=== PATIENT | female | born 1985 | race Caucasian/White ===

== ENCOUNTER 2022-11-25 00:13 | Inpatient (IN) | payer MEDICAID, SELFPAY ==
[2022-11-24 23:34] VITALS: PULSE 112; O2SAT 77
[2022-11-24 23:36] VITALS: PULSE 125; O2SAT 97
[2022-11-24 23:41] VITALS: PULSE 117; O2SAT 97
[2022-11-25] VITALS (120 sets, daily range): BP systolic 107–155; BP diastolic 31–81; PULSE 96–129; RESP 15–18; TEMP 35.8–37.2; O2SAT 90–100; BMI 45.3
[2022-11-25 00:10] LABS: Basophils % 0.2 %; Eosinophils % 0.1 %; Hematocrit 37.6 % (37.0-47.0); Hemoglobin 12.1 g/dL (11.5-15.3); Lymphocytes # 1.4 10^3/uL (0.8-4.8); Lymphocytes % 9.5 %; Mean Corpuscular HGB Conc 32.2 g/dL (30.0-36.0); Mean Corpuscular Hemoglobin 28.3 pg (28.0-34.0); Mean Corpuscular Volume 88.1 fl (81-99); Mean Platelet Volume 9.6 fL (7.4-10.4); Monocytes # 0.7 10^3/uL (0.2-0.9); Monocytes % 4.7 %; Neutrophils # 12.02 10^3/uL (1.8-7.7); Nucleated Red Blood Cells % 0 %; Platelet Count 183 10^3/cmm (130-400); Red Blood Count 4.27 10^6/uL (4.1-5.3); Red Cell Distribution Width 16.5 % (12.1-15.1); White Blood Count 14.2 10^3/uL (4.0-10.0)
[2022-11-25] MEDS: lactated ringers 1,000 ML 999 ML IV (00:30)
[2022-11-25] MEDS: famotidine 20 mg/2 mL INJ IVP (00:49)
[2022-11-25] MEDS: citric acid-sodium citrate 30 mL UDC PO (00:49)
[2022-11-25] MEDS: metoclopramide 5 mg/mL SDV 2 mL 10 MG IVP (00:49)
[2022-11-25] MEDS: ceFAZolin 2,000 MG in sodium chloride 0.9% (plus) 50 ML 100 MG IV (00:50)
--- NOTE | 2022-11-25 01:20 | SUR.OPER ---
0059 heart tones 140's
--- NOTE | 2022-11-25 01:40 | ANES.PREANE2 ---
Pre-Anesthetic Assessment Height/Weight: Height 1.7 m Pulse BP Pulse Ox 100 141/66 97 11/25/22 00:51 11/25/22 00:51 11/24/22 23:41 Preop Diagnosis: IUP Operation Date: 11/25/22 01:00 Proposed Procedures p Section Repeat(Not Applicable) - Declan Warren MD Familial anesthetic complications: none Last intake: meal early afternoon per patient. Social No alcohol and No tobacco Exam alert and oriented x 3 Airway Submandibular: within normal limits Cervical ROM: within normal limits Mallampati: Class I Dentition: full Pulmonary None reported CV/HEM None reported None reported Hepatic None reported GI None reported Metabolic None reported Musc/skel None reported Neuropsych None reported Patient restless refusing care, very anxious. Anesthetic Plan ASA status: 3E Anesthesia: General and Regional (specify below) (SAB) Other Pertinent Information Patient presented to OB in active labor , Gestation 42 weeks and 3 days. Patient reports she attempted a home delivery, membranes intact at this time. [id number] CLEARING HOUSE CLERK called for stat c/s. CLEARING HOUSE CLERK arrived to OB unit at 0000. GA requested given patient history and presentation. CLEARING HOUSE CLERK preparing for GA when ordered halt on C/S he was able to check patient and she is complete baby looks stable at this time potential for vaginal delivery. CLEARING HOUSE CLERK entered room to discuss options and assess patient she was restless and anxious begging us to do something physician requested a spinal anesthetic to calm the patient and try to avoid C/S if possible. Patient denied medical history gave verbal consent. She was prepped and draped sterile technique used 0.75% bupivicaine 0.25ml with 25 mcg Fentanyl was given x 2 attempts + CSF - Heme. Membranes were ruptured presentation was favorable. Ultimately the decision for a GA was made d/t patients inability to cooperate and her anxiety levels. When given the option to try to push the baby out vs. C/S she elected for a C/S with GA. Patient reported previous C/S with large babies (11lbs) given that she is 42 weeks 3 days without care and the patient is uncooperative and anxious the safest choice was to proceed with C/S.FHT stable. Medications/Allergies Home Medications Medication Instructions Recorded Confirmed Last Taken Type ondansetron 8 mg disintegrating 8 mg PO Q8H PRN nausea and 03/29/22 03/29/22 Unknown Rx tablet vomiting #30 tabs Allergies Allergy/AdvReac Type Severity Reaction Status Date / Time No Known Allergies Allergy Unverified 03/29/22 15:44 Data Anesthesia 11/24/22 23:56 Short CBC 11/24/22 Range/Units 23:56 WBC 14.2 H (4.0-10.0) 10^3/uL Hgb 12.1 (11.5-15.3) g/dL Hct 37.6 (37.0-47.0) % MCV 88.1 (81-99) fl Plt Count 183 (130-400) 10^3/cmm Neut % (Auto) 85.0 % Neut # (Auto) 12.02 H (1.8-7.7) 10^3/uL Blood Bank 11/24/22 23:56 Blood Type A Positive Rho(D) Type Positive Antibody Screen Negative Cardiac Studies: No Data to Display
--- NOTE | 2022-11-25 02:09 | PM.OBGYHP ---
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 She is unsure of her due date and states it was the middle of October . On based information that we have based on her last menstrual period her estimated gestational age was approximately 42 weeks 3 days. She states that she had initial care with Dr. Leach, however she opted to do home without any assistance and sought no further care. She has had prior with her last delivery approximately 5 years ago and 4 vaginal deliveries before that. Upon initial evaluation the patient was in significant pain having obvious contractions. Difficulty to assess patient due to patient being on cooperative with nursing staff. Eventually the patient was able to be checked and she was 8 to 9 cm with a bulging bag. Initially the patient was believed to be able to deliver vaginally in the amniotic sac was ruptured. However, the patient had significant pain without further descent. The patient did complete dilation and did not feel that she could push or lay on her back. Opted to proceed with repeat lower transverse . Review of Systems General: Reports: 10 or more systems reviewed and unremarkable except in HPI and below Medications/Allergies Home Medications Medication Instructions Recorded Confirmed Last Taken Type ondansetron 8 mg disintegrating 8 mg PO Q8H PRN nausea and 03/29/22 03/29/22 Unknown Rx tablet vomiting #30 tabs Allergies Allergy/AdvReac Type Severity Reaction Status Date / Time No Known Allergies Allergy Unverified 03/29/22 15:44 History History History 8 Term Miscarriages/Ectopic Living Children 5 Vitals/I&O/Wt Last Vital Signs Pulse 100 11/25/22 00:51 BP 141/66 11/25/22 00:51 Pulse Ox 97 11/24/22 23:41 Physical Exam Const: COMMON NORMALS: alert; apparent distress Resp: COMMON NORMALS: normal respiratory effort and No retractions Cardio: COMMON NORMALS: no JVD, regular rate and regular rhythm GI: OTHER: Gravid : COMMON NORMALS: Yes normal external appearance Extremity: COMMON NORMALS: no clubbing, cyanosis or edema Neuro: COMMON NORMALS: moves all extremities Psych: COMMON NORMALS: mental status grossly normal; negative for cooperative Skin: GENERAL SKIN EXAM: no rashes or lesions noted Urinary Catheter Management: Jones Latex: Cath Placed During This Visit: yes Urinary Catheter Date of Insertion: 11/25/22 Urinary Catheter Time of Insertion: 00:47 Data 11/24/22 23:56 A&P Assessment and plan (1) with fetus of unknown gestational age: Plan to proceed with repeat low-transverse as the the fetus is fairly large based on palpation. Discussed risks and benefits of including bleeding, infection, damage to other structures, and . Informed consent was obtained. (2) Insufficient care: Attestations Medical Necessity Statement*: Anticipate greater than 2 midnight stay Coding Level of Care Code Acute Code for Chg Fwd Diagnoses with fetus of unknown gestational age Z34.90 Insufficient care O09.30
[2022-11-25 02:17] LABS: Amphetamines Screen Urine Negative (Negative); Barbiturates Screen Urine Negative (Negative); Benzodiazepines Screen Urine Negative (Negative); Cocaine Screen Urine Negative (Negative); Opiate Screen Urine Negative (Negative); PCP Screen Urine Negative (Negative); THC Screen Urine Negative (Negative)
--- NOTE | 2022-11-25 02:19 | P.OP_ITS ---
Operative Report Date of procedure: November 25, 2022 Pre-op diagnosis: Preop Diagnosis IUP Post-op diagnosis: same Post-op findings: Viable female Procedure done: Repeat lower transverse Surgeon: Dr. Declan Warren General Operations Agent: Dr. Nathaly Baker Estimated blood loss (mL): 700 Complications: None Condition: stable Disposition: PACU Brief History: This is a 37-year-old G8, P6 that presented with contractions, vaginal bleeding, and of unknown gestational age. She also has a history of previous C- section. Procedure: Patient was taken to the operating room where general anesthesia was given after she was prepped and draped in the normal sterile fashion in a dorsal supine position with a leftward tilt. Skin incision was made with scalpel and carried out to the underlying layer of fascia which was incised in the midline. Fascial incision was then extended laterally with Gutierrez scissors bilaterally. The superior aspect of the fascial incision was grasped with Kyle clamps elevated and dissected off the rectus muscles with Gutierrez's. The inferior aspect of the fascial incision was grasped with Milton's and in likewise manner was elevated and dissected off with Gutierrez's. Peritoneum was then entered digitally and extended with good visualization of the bladder. Silvia O retractor was inserted. uterine incision was then created in a transverse fashion in the lower uterine segment with scalpel and extended digitally. Clear fluid noted. 's head was delivered atraumatically nose and mouth suctioned with bulb, cord clamped and cut and handed off to waiting nursing staff. The placenta was then expressed and uterus exteriorized from the abdomen. And cleared of all clots and debris. Uterine incision was then repaired in a running locked fashion with 0 Vicryl. A second suture of the same was then used to imbricate the incision. Excellent hemostasis was noted. Uterus was then returned to the abdomen, gutters were cleared of all clots and debris and wound was irrigated. Peritoneum was then closed in a running fashion with 3-0 Vicryl. Fascia was then closed with 0 Vicryl in a running fashion. Subcutaneous tissue was closed with 3-0 Vicryl and skin was closed with 4-0 Monocryl on a Mahin needle. The incision was reinforced with Steri-Strips and pressure bandage was placed over the wound. Sponge, laps, and needle count was correct x2. 2 g Ancef was given prior to the procedure. Patient was taken recovery in stable condition.
[2022-11-25] MEDS: HYDROcodone-acetaminophen 5-325 mg Tablet PO ×4 (04:35→18:44)
[2022-11-25] MEDS: dextrose 5%-lactated ringers 1,000 ML 125 ML IV ×2 (04:36→14:37)
--- NOTE | 2022-11-25 04:36 | PC.NURSE ---
Patient reported one time allergy to tylenol when she was younger that gave her hives. She has had hydrocodone with her previous and had no reaction. She is requesting pain medication at this time and would like hydrocodone as it works well.
--- NOTE | 2022-11-25 06:25 | PC.NURSE ---
Patient was helped up to the chair at this time. She had a moderate amount of blood loss at this time no clots. I changed her linens and then helped her back into bed. She has had scant to small bleeding all night. She denies pain at this time.
--- NOTE | 2022-11-25 06:34 | PC.NURSE ---
call made to hotline regarding no care. Drug screen was negative. Patient is bonding well with baby. This nurse has no other concerns at this time.
--- NOTE | 2022-11-25 07:58 | ANE.PACU2 ---
Inpatient post-anesthesia follow up: Airway intact: Yes Vital signs: Temperature 96.5 F Pulse Rate 109 Respiratory Rate 16 Blood Pressure 114/56 Pulse Oximetry 99 Oxygen Delivery Me thod Room Air Oxygen Flow Rate Fraction of Inspir ed Oxygen Hydration adequate: Yes Nausea and vomiting: No Pain level: 3 Mental status: Baseline
[2022-11-25] MEDS: ketorolac 30 mg/mL INJ IVP ×2 (08:31→14:15)
[2022-11-25] MEDS: prenatal vitamin Capsule 1 CAP PO (09:47)
[2022-11-25 18:13] LABS: Hematocrit 28.5 % (37.0-47.0); Hemoglobin 8.9 g/dL (11.5-15.3); Mean Corpuscular HGB Conc 31.2 g/dL (30.0-36.0); Mean Corpuscular Hemoglobin 28.4 pg (28.0-34.0); Mean Corpuscular Volume 91.1 fl (81-99); Mean Platelet Volume 9.4 fL (7.4-10.4); Platelet Count 171 10^3/cmm (130-400); Red Blood Count 3.13 10^6/uL (4.1-5.3); Red Cell Distribution Width 17.1 % (12.1-15.1); White Blood Count 10.8 10^3/uL (4.0-10.0)
[2022-11-25] MEDS: docusate sodium 100 mg Capsule PO (18:44)
[2022-11-25] MEDS: ibuprofen 800 mg tablet PO (20:05)
[2022-11-25] MEDS: lanolin oint 7 gm 1 APPLIC TOPICAL (20:06)
[2022-11-25] MEDS: simethicone 80 mg Chew PO (20:06)
[2022-11-26] MEDS: HYDROcodone-acetaminophen 5-325 mg Tablet PO ×4 (01:13→20:25)
[2022-11-26 05:35] VITALS: BP 98/55; PULSE 85; RESP 16; TEMP 36.8; O2SAT 98
--- NOTE | 2022-11-26 07:34 | PM.OBGYPN ---
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 She is postop day 1. Is doing fairly well. Patient had some initial dizziness but this is improved. Overall she has no new concerns today. Vital signs have been stable Labor: Station: -1 Amniotic Membrane Status: Intact Monitor Mode: Palpation Contraction Pattern: Regular Post /CS: Patient comments OB post-: no complaints, pain well controlled, incisional pain and tolerating diet baby status: doing well feeding status: exclusively breast feeding Vitals/I&O/Wt Last Vital Signs Temp 98.3 F 11/26/22 05:35 Pulse 85 11/26/22 05:35 Resp 16 11/26/22 05:35 BP 98/55 11/26/22 05:35 Pulse Ox 98 11/26/22 05:35 O2 Del Method Room Air 11/26/22 05:35 Weight last 48 hrs Weight 131.224 kg Physical Exam Const: COMMON NORMALS: alert; apparent distress Neck/C-Spine: COMMON NORMALS: no JVD Resp: COMMON NORMALS: normal respiratory effort and No retractions Cardio: COMMON NORMALS: no JVD, regular rate and regular rhythm RATE: regular rate RHYTHM: regular rhythm GI: OTHER: Gravid : COMMON NORMALS: Yes normal external appearance Extremity: COMMON NORMALS: no clubbing, cyanosis or edema Neuro: COMMON NORMALS: moves all extremities SENSORIUM/ORIENTATION: Yes alert Psych: COMMON NORMALS: mental status grossly normal; negative for cooperative Skin: COMMON NORMALS: no rashes or lesions noted (Incision clean dry and intact) GENERAL SKIN EXAM: no rashes or lesions noted (Incision clean dry and intact) Urinary Catheter Management: Jones Latex: Cath Placed During This Visit: yes, but has since been removed by the nurse Reason for Continuing Indwelling Catheter: Decision to DC Catheter Urinary Catheter Date of Insertion: 11/25/22 Urinary Catheter Time of Insertion: 00:47 Date Urinary Catheter Removed: 11/25/22 Time Urinary Catheter Discontinued: 19:45 Data 11/25/22 18:05 A&P Assessment and plan (1) Insufficient care: (2) Status post repeat low transverse section: Continue with routine post care. Up out of bed today, ambulating. Attestations Medical Necessity Statement*: Anticipate discharge tomorrow. Coding Level of Care Code Acute Code for Chg Fwd Diagnoses Insufficient care O09.30 Status post repeat low transverse section Z98.891
[2022-11-26] MEDS: ibuprofen 800 mg tablet PO ×3 (08:49→20:25)
[2022-11-26] MEDS: docusate sodium 100 mg Capsule PO ×2 (08:50→20:25)
[2022-11-26] MEDS: prenatal vitamin Capsule 1 CAP PO (08:50)
[2022-11-26 09:30] VITALS: BP 105/56; PULSE 108; RESP 16; O2SAT 97
[2022-11-26 16:40] VITALS: BP 111/57; PULSE 104; RESP 16; O2SAT 97
[2022-11-26 20:24] VITALS: BP 147/70; PULSE 102; O2SAT 97
[2022-11-27 06:05] VITALS: BP 100/56; PULSE 90; RESP 18; TEMP 36.9; O2SAT 96
--- NOTE | 2022-11-27 06:52 | P.DS_ITS ---
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 Hospital Course Hospital Course This is a 37-year-old that presented with contractions. Patient was initially not compliant with evaluation. Patient evaluation did show a elevated cervix of 8 to 9 cm with head down . Patient has had 4 previous vaginal births but her last was due to macrosomia. Her last child weighed 12 pounds at . The patient was susana every 2 to 3 minutes did not feel that she was capable of delivering this baby vaginally and for the concerns of Dr. Mancia decided to proceed with repeat low-transverse C- section. She underwent repeat low-transverse without complication. The patient initially had some dizziness after delivery but this did resolve. Otherwise, her post care has been unremarkable. Her pain is well controlled. Bleeding is appropriate. Information Peripartum Data: Delivery Method: complications: none Physical Exam Const: COMMON NORMALS: alert; apparent distress Neck/C-Spine: COMMON NORMALS: no JVD Resp: COMMON NORMALS: normal respiratory effort and No retractions Cardio: COMMON NORMALS: no JVD, regular rate and regular rhythm RATE: regular rate RHYTHM: regular rhythm GI: OTHER: Gravid : COMMON NORMALS: Yes normal external appearance Extremity: COMMON NORMALS: no clubbing, cyanosis or edema Neuro: COMMON NORMALS: moves all extremities SENSORIUM/ORIENTATION: Yes alert Psych: COMMON NORMALS: mental status grossly normal; negative for cooperative Skin: COMMON NORMALS: no rashes or lesions noted (Incision clean dry and intact) GENERAL SKIN EXAM: no rashes or lesions noted (Incision clean dry and intact) Urinary Catheter Management: Jones Latex: Cath Placed During This Visit: yes, but has since been removed by the nurse Reason for Continuing Indwelling Catheter: Decision to DC Catheter Urinary Catheter Date of Insertion: 11/25/22 Urinary Catheter Time of Insertion: 00:47 Date Urinary Catheter Removed: 11/25/22 Time Urinary Catheter Discontinued: 19:45 History History History 8 Term Miscarriages/Ectopic Living Children 6 Discharge Data Studies Completed and Pending Laboratory Results WBC 10.8 10^3/uL (4.0-10.0) H 11/25/22 18:05 RBC 3.13 10^6/uL (4.1-5.3) L 11/25/22 18:05 Hgb 8.9 g/dL (11.5-15.3) L 11/25/22 18:05 Hct 28.5 % (37.0-47.0) L 11/25/22 18:05 MCV 91.1 fl (81-99) 11/25/22 18:05 MCH 28.4 pg (28.0-34.0) 11/25/22 18:05 MCHC 31.2 g/dL (30.0-36.0) 11/25/22 18:05 RDW 17.1 % (12.1-15.1) H 11/25/22 18:05 Plt Count 171 10^3/cmm (130-400) 11/25/22 18:05 MPV 9.4 fL (7.4-10.4) 11/25/22 18:05 Neut % (Auto) 85.0 % 11/24/22 23:56 Lymph % (Auto) 9.5 % 11/24/22 23:56 Swift % (Auto) 4.7 % 11/24/22 23:56 Eos % (Auto) 0.1 % 11/24/22 23:56 Baso % (Auto) 0.2 % 11/24/22 23:56 Neut # (Auto) 12.02 10^3/uL (1.8-7.7) H 11/24/22 23:56 Lymph # (Auto) 1.4 10^3/uL (0.8-4.8) 11/24/22 23:56 Swift # (Auto) 0.7 10^3/uL (0.2-0.9) 11/24/22 23:56 Eos # (Auto) 0.0 10^3/uL (0.0-0.8) 11/24/22 23:56 Baso # (Auto) 0.0 10^3/uL (0.0-0.1) 11/24/22 23:56 Nucleated RBC % (auto) 0 % 11/24/22 23:56 Nucleated RBCs # 0.0 /100WBC 11/24/22 23:56 Urine Opiates Screen Negative ng/mL (Negative) 11/25/22 00:25 Ur Barbiturates Screen Negative ng/mL (Negative) 11/25/22 00:25 Ur Phencyclidine Scrn Negative ng/mL (Negative) 11/25/22 00:25 Ur Amphetamines Screen Negative ng/mL (Negative) 11/25/22 00:25 U Benzodiazepines Scrn Negative ng/mL (Negative) 11/25/22 00:25 Urine Cocaine Screen Negative ng/mL (Negative) 11/25/22 00:25 U Marijuana (THC) Screen Negative ng/mL (Negative) 11/25/22 00:25 Blood Type A Positive 11/24/22 23:56 Rho(D) Type Positive 11/24/22 23:56 Antibody Screen Negative 11/24/22 23:56 Vitals Last Vital Signs Temp 98.4 F 11/27/22 06:05 Pulse 90 11/27/22 06:05 Resp 18 11/27/22 06:05 BP 100/56 11/27/22 06:05 Pulse Ox 96 11/27/22 06:05 O2 Del Method Room Air 11/27/22 06:05 Discharge Plan Discharge Patient Disposition: Home Condition: Stable Prescriptions: New hydrocodone-acetaminophen 5-325 mg Tablet 1 - 2 tab PO Q4H PRN (Reason: Moderate To Severe Pain) Qty: 10 0RF Discharge Orders: Discharge Order (Routine); Ordered 11/27/22 Ordered By: Declan Warren Referrals: Declan Warren MD [Physician] - 7-10 days Discharge Diet: Usual diet and Regular Discharge Activity: Limit activity as instructed Patient Instructions: Depression (DC), Bleeding (DC), Opioid Safety (DC), Preeclampsia and Eclampsia After Delivery (GEN), (DC), OB Discharge Report, OB Food/Drug Interaction Guide, Opioid Safety, OB Home Care, OB Proud Parent Packet, Abnormal Bleeding Discharge Attestations 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
[2022-11-27] MEDS: HYDROcodone-acetaminophen 5-325 mg Tablet PO (07:14)
[2022-11-27] MEDS: docusate sodium 100 mg Capsule PO (09:29)
[2022-11-27] MEDS: ibuprofen 800 mg tablet PO ×2 (09:29→15:25)
[2022-11-27] MEDS: prenatal vitamin Capsule 1 CAP PO (09:29)
[2022-11-27 10:30] VITALS: BP 123/61; PULSE 100; RESP 17; TEMP 36.9
[2022-11-27 15:25] VITALS: BP 114/61; PULSE 96; RESP 18; TEMP 36.9; O2SAT 98
[2022-11-27 18:25] VITALS: BP 131/64; PULSE 105; RESP 17; TEMP 36.9; O2SAT 98
[2022-11-27 19:40] VITALS: BP 131/64; PULSE 105; RESP 17; TEMP 36.9; O2SAT 98
== END 2022-11-27 19:00 | disposition home or self-care (01) | DRG 788 ==
LOC: OPOB 07:06 → OBGYN 07:06
PROVIDERS: Admitting Provider Family Medicine; Family Provider Nurse Practitioner Family; Visit Provider Family Medicine
PROC: 10D00Z1 Extraction of Products of Conception, Low, Open Approach (ICD-10-PCS; CPT 59514; principal; 2022-11-25 01:00)
DX: O48.1 Prolonged pregnancy (principal); Z3A.49 Greater than 42 weeks gestation of pregnancy; Z37.0 Single live birth; O32.4XX0 Maternal care for high head at term, not applicable or unspecified; O34.211 Maternal care for low transverse scar from previous cesarean delivery
CPT/HCPCS: 36415; 51702; 59025; 59409; 80306; 85025; 85027; 86850; 86900; 96374; 96376; 99211; J0330; J0690; J1100; J1170; J1885; J2405; J2590; J2704; J2765; J3010; J3490; J7040; J7120; J7121

== ENCOUNTER 2024-09-25 23:37 | Emergency (ER) | payer MEDICAID, SELFPAY ==
[2024-09-25 23:43] VITALS: BP 137/86; PULSE 87; RESP 18; TEMP 36.9; O2SAT 98; BMI 35.2
--- NOTE | 2024-09-26 01:17 | ECG_ITS ---
[employer] 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
[2024-09-26 01:34] LABS: Basophils % 0.5 %; Eosinophils % 0.6 %; Hematocrit 39.4 % (36-47); Lymphocytes # 2.4 10^3/uL (0.8-4.8); Lymphocytes % 35.7 %; Mean Corpuscular Hemoglobin 25.6 pg (27-33); Mean Corpuscular Volume 82.6 fl (85-98); Mean Platelet Volume 10.2 fL (7.4-10.4); Monocytes # 0.2 10^3/uL (0.2-0.9); Monocytes % 3.6 %; Neutrophils # 3.95 10^3/uL (1.8-7.7); Neutrophils % 59.4 %; Nucleated Red Blood Cells % 0 %; Platelet Count 254 10^3/cmm (157-399); Red Blood Count 4.77 10^6/uL (3.85-5.65); Red Cell Distribution Width 15.1 % (12.1-15.1); White Blood Count 6.64 10^3/uL (3.29-11.43)
[2024-09-26 01:40] VITALS: BP 150/70; PULSE 89; RESP 16; O2SAT 98
[2024-09-26 01:48] LABS: Alanine Aminotransferase 11 U/L (0-33); Albumin Level 4.6 g/dL (3.5-5.2); Alkaline Phosphatase 67 U/L (35-105); Anion Gap 16.1 (5-19); Aspartate Amino Transferase 12 U/L (0-32); Blood Urea Nitrogen 10 mg/dL (6-20); Calcium 9.5 mg/dL (8.5-10.5); Carbon Dioxide 23 mmol/L (22-29); Chloride 104 mmol/L (98-107); Creatinine Clr Calc Pharmacy 156.1066; Globulin 3.2 g/dL (1.3-4.6); Glomerular Filtration Rate 111.9 mL/min (90-130); Glucose 112 mg/dL (65-115); HCG, Serum Qual Negative (Negative); Lipase 25 U/L (13-60); Osmolality Calculated 288 mOsm/kg (285-295); Potassium 4.1 mmol/L (3.5-5.1); Sodium 139 mmol/L (136-145); Total Bilirubin 0.2 mg/dL (0.15-1.2); Total Protein 7.8 g/dL (6.6-8.7)
--- NOTE | 2024-09-26 02:43 | W.ED.NAVMDI ---
HPI - Nausea/Vomiting/Diarrhea General: Chief complaint: Nausea/Vomiting/Diarrhea Stated complaint: N/V Fainting Spells Time Seen by Provider: 09/26/24 01:30 History of Present Illness: 39-year-old female with multiple complaints. She complains of waves of nausea, near syncopal episodes, epigastric burning discomfort, on and off for the past couple of months. They seem to be getting more frequent. She notices them when laying down sleeping at night. She believes they may worsen with her menstrual cycle, but she is not sure. She has not had these problems before July. Currently she is not having symptoms. Related Data Previous Rx's ?Medication ?Instructions ?Recorded hydrocodone 5 mg-acetaminophen 325 1 - 2 tab PO Q4H PRN Moderate To 11/27/22 mg tablet Severe Pain #10 tabs ondansetron 4 mg disintegrating 4 mg PO Q6H PRN nausea and 09/26/24 tablet vomiting #14 tabs Allergies Allergy/AdvReac Type Severity Reaction Status Date / Time acetaminophen Allergy ALGY-Hives Verified 11/25/22 04:20 [facility] ED Female Reproductive History: Date of last menstrual period: 09/25/24 Physical Exam Const: COMMON NORMALS: no acute distress GENERAL APPEARANCE: cooperative; not ill appearing and not frail appearing HENMT: COMMON NORMALS: normocephalic, atraumatic and Normal external nose present HEAD & SCALP: normocephalic and atraumatic FACE & SINUS: normal facial exam and face symmetric NOSE: Normal external nose present Eye: COMMON NORMALS: Equal, round and reactive pupils present and EOMs intact bilaterally PUPIL: Yes Equal, round and reactive pupils present Neck/C-Spine: GENERAL: Yes trachea midline Chest: CHEST: Yes Symmetrical chest wall rise Resp: COMMON NORMALS: normal respiratory effort, No retractions, No use of accessory muscles and clear to auscultation bilaterally AUSCULTATION: clear to auscultation bilaterally Cardio: COMMON NORMALS: regular rate and regular rhythm RATE: regular rate RHYTHM: regular rhythm GI: COMMON NORMALS: Normal to inspection, nondistended, normoactive bowel sounds present Extremity: COMMON NORMALS: no pedal edema Neuro: CAITLYN COMA SCALE: document GCS findings [place] coma scale eye opening: Spontaneous [place] coma scale verbal response: Orientated Caitlyn coma scale motor response: Obey commands Caitlyn coma scale total score: 15 SENSORY EXAM: Yes extremities (intact) Psych: COMMON NORMALS: speech normal SPEECH: Yes normal speech Skin: COMMON NORMALS: no rashes or lesions noted GENERAL SKIN EXAM: no rashes or lesions noted Course Vital Signs: Vital signs: Vital Signs Temperature 98.4 F 09/25/24 23:43 Pulse Rate 83 09/26/24 03:10 Respiratory Rate 16 09/26/24 03:10 Blood Pressure 139/74 09/26/24 03:10 Pulse Oximetry 99 09/26/24 03:10 Oxygen Delivery Me thod Room Air 09/26/24 01:40 MDM - Nausea/Vomiting/Diarrhea Medical Decision Making Patient is asymptomatic currently. Her EKG shows normal sinus rhythm, with normal axis and intervals no acute ST wave changes. CBC and BMP are normal. She is not . CRP is 3. Cause of her symptoms unknown. She will be allowed discharge. Outpatient follow-up. Case management has been asked to make her appointment. Lab Data 09/26/24 01:26 09/26/24 01:26 Laboratory Results WBC 6.64 10^3/uL (3.29-11.43) 09/26/24 01:26 RBC 4.77 10^6/uL (3.85-5.65) 09/26/24 01:26 Hgb 12.20 g/dL (11.27-16.99) 09/26/24 01:26 Hct 39.4 % (36-47) 09/26/24 01:26 MCV 82.6 fl (85-98) L 09/26/24 01:26 MCH 25.6 pg (27-33) L 09/26/24 01:26 MCHC 31.0 g/dL (30-55) 09/26/24 01:26 RDW 15.1 % (12.1-15.1) 09/26/24 01:26 Plt Count 254 10^3/cmm (157-399) 09/26/24 01:26 MPV 10.2 fL (7.4-10.4) 09/26/24 01:26 Neut % (Auto) 59.4 % 09/26/24 01:26 Lymph % (Auto) 35.7 % 09/26/24 01:26 Mckinley % (Auto) 3.6 % 09/26/24 01:26 Eos % (Auto) 0.6 % 09/26/24 01: Baso % (Auto) 0.5 % 09/26/24 01: Neut # (Auto) 3.95 10^3/uL (1.8-7.7) 09/26/24 01: Lymph # (Auto) 2.4 10^3/uL (0.8-4.8) 09/26/24 01: Mckinley # (Auto) 0.2 10^3/uL (0.2-0.9) 09/26/24 01: Eos # (Auto) 0.0 10^3/uL (0.0-0.8) 09/26/24 01: Baso # (Auto) 0.0 10^3/uL (0.0-0.1) 09/26/24 01: Nucleated RBC % (auto) 0 % 09/26/24: Nucleated RBCs # 0.0 /100WBC 09/26/24 01:26 Sodium 139 mmol/L (136-145) 09/26/24 01: Potassium 4.1 mmol/L (3.5-5.1) 09/26/24 01: Chloride 104 mmol/L (98-107) 09/26/24 01: Carbon Dioxide 23 mmol/L (22-29) 09/26/24:26 Anion Gap 16.1 (5-19) 09/26/24 01:26 BUN 10 mg/dL (6-20) 09/26/24 01:26 Creatinine 0.6 mg/dL (0.5-0.9) 09/26/24 01:26 GFR Calculation 111.9 mL/min (90-130) 09/26/24 01:26 Glucose 112 mg/dL (65-115) 09/26/24 01: Calculated Osmolality 288 mOsm/kg (285-295) 09/26/24 01: Calcium 9.5 mg/dL (8.5-10.5) 09/26/24 01:26 Total Bilirubin 0.2 mg/dL (0.15-1.2) 09/26/24 01:26 AST 12 U/L (0-32) 09/26/24 01: ALT 11 U/L (0-33) 09/26/24 01:26 Alkaline Phosphatase 67 U/L (35-105) 09/26/24 01:26 C-Reactive Protein 3.0 mg/L (0.0-4.9) 09/26/24 01:26 Total Protein 7.8 g/dL (6.6-8.7) 09/26/24 01:26 Albumin 4.6 g/dL (3.5-5.2) 09/26/24 01:26 Globulin 3.2 g/dL (1.3-4.6) 09/26/24 01:26 Lipase 25 U/L (13-60) 09/26/24 01:26 HCG, Qual Negative (Negative) 09/26/24 01:26 No radiology studies performed this visit Discharge Plan Discharge Patient Disposition: Home Clinical Impression: Palpitations, Near syncope Condition: Stable Prescriptions: New ondansetron 4 mg tablet,disintegrating 4 mg PO Q6H PRN (Reason: nausea and vomiting) Qty: 14 0RF No Action hydrocodone-acetaminophen 5-325 mg Tablet 1 - 2 tab PO Q4H PRN (Reason: Moderate To Severe Pain) Qty: 10 0RF Discharge Orders: Discharge ED (Routine); Ordered 09/26/24 Ordered By: Tj Zhong Referrals: Minnie Mathis HEALTH EDUCATION ASSISTANT [Family Provider] - 1-3 days Patient Instructions: Heart Palpitations (ED), Near Syncope (ED), Opioid Safety, Pain Management Activity Restrictions/Additional Instructions: Stay hydrated. Case management has been asked to make you a follow-up appointment for ongoing outpatient evaluation since your blood work, EKG, and exam did not reveal a cause for your near syncopal episodes or heart palpitations. Return for problems. Print Language: Burmese Coding Level of Care Code ED Health Program Specialist for Lisa Hadley
[2024-09-26 03:10] VITALS: BP 139/74; PULSE 83; RESP 16; O2SAT 99
== END 2024-09-26 03:12 | disposition home or self-care (01) ==
PROVIDERS: Emergency Provider Emergency Medicine; Family Provider Nurse Practitioner Family
DX: R00.2 Palpitations (principal); R55 Syncope and collapse
CPT/HCPCS: 36415; 80053; 83690; 84703; 85025; 86140; 93005; 99284

== ENCOUNTER 2025-02-15 15:11 | Outpatient (CLI) | payer MEDICAID, SELFPAY ==
--- NOTE | 2025-02-15 15:30 | US_ITS ---
WS: [id number] US pelvic complete* [id number] HISTORY: Z87.42 - Personal history of other diseases of the female... COMPARISON: 06/24/2017 Uterus: 9.0 cm x 5.3 cm x 4.5 cm. Normal size anteverted uterus. Uterus becomes slightly retroflexed during transvaginal imaging. No fibroid or mass. Endometrium: 1.0 cm. Normal size endometrium. There is a calcification in the subendometrial zone which may be from prior instrumentation. Right ovary: Not visualized Left ovary: 2.2 cm x 2.2 cm x 1.8 cm. Normal size and vascularity, no cystic or solid masses. No free fluid in the cul-de-sac. US/US pelvic complete* [id number] IMPRESSION: 1. Normal endometrium. 2. No ovarian cyst. 3. RIGHT ovary not visualized.
== END 2025-02-15 15:12 | disposition home or self-care (01) ==
LOC: RAD 15:13
PROVIDERS: Family Provider Nurse Practitioner Family; Visit Provider Nurse Practitioner Family
DX: Z87.42 Personal history of other diseases of the female genital tract (principal); N92.0 Excessive and frequent menstruation with regular cycle
CPT/HCPCS: 76856

== ENCOUNTER 2025-05-08 16:39 | Outpatient (CLI) | payer MEDICAID, SELFPAY ==
--- NOTE | 2025-05-08 16:30 | US_ITS ---
WS: [id number] US pelvic complete* [id number] HISTORY: N92.0 - Excessive and frequent menstruation with regular ... COMPARISON: 02/15/2025 Uterus: 9.0 cm x 6.5 cm x 3.8 cm. Uterus is enlarged and anteverted. Endometrium: 1.4 cm. Mildly heterogeneous endometrium. There are a few subtle subendometrial calcifications. Heterogeneity and decreased echogenicity in the central endometrium. Right ovary: 3.9 cm x 4.2 cm x 2.7 cm. Normal size and vascularity, no cystic or solid masses. Left ovary: 2.0 cm x 2.1 cm x 1.2 cm. Normal size and vascularity, no cystic or solid masses. No free fluid in the cul-de-sac. US/US pelvic complete* [id number] IMPRESSION: 1. Mildly heterogeneous endometrium with a few subendometrial calcifications. Only transabdominal imaging performed. For abnormal uterine bleeding highly rec ommend transvaginal pelvic ultrasound for complete evaluation. 2. Mild uterine enlargement.
== END 2025-05-08 16:40 | disposition home or self-care (01) ==
LOC: RAD 16:40
PROVIDERS: PCP Nurse Practitioner Family; Visit Provider Nurse Practitioner Family
DX: N92.0 Excessive and frequent menstruation with regular cycle (principal); Z87.42 Personal history of other diseases of the female genital tract; E34.8 Other specified endocrine disorders; N85.2 Hypertrophy of uterus
CPT/HCPCS: 76856